=== PATIENT | male | born 1975 | race Caucasian/White ===

== ENCOUNTER 2016-12-24 09:34 | Emergency (ER) | payer BC | END 2016-12-24 11:28 | disposition home or self-care (01) | LOC: ER1 09:34 | DX: S00.81XA Abrasion of other part of head, initial encounter (principal); F17.200 Nicotine dependence, unspecified, uncomplicated; V89.2XXA Person injured in unspecified motor-vehicle accident, traffic, initial encounter; Y93.89 Activity, other specified; Y92.410 Unspecified street and highway as the place of occurrence of the external cause | CPT/HCPCS: 99284 ==